=== PATIENT | male | born 1970 | race Caucasian/White ===

== ENCOUNTER 2017-03-02 21:13 | Emergency (ER) | payer BC ==
[2017-03-02 21:25] VITALS: BP 133/74
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
== END 2017-03-02 22:15 | disposition home or self-care (01) ==
LOC: ER 21:13
DX: S80.251A Superficial foreign body, right knee, initial encounter (principal); M25.461 Effusion, right knee; W60.XXXA Contact with nonvenomous plant thorns and spines and sharp leaves, initial encounter; Y93.89 Activity, other specified; Y92.828 Other wilderness area as the place of occurrence of the external cause
CPT/HCPCS: 99284